=== PATIENT | male | born 1975 | race Caucasian/White ===

== ENCOUNTER → 2016-12-25 | Outpatient (CLI) | payer OTHER ==
[~2016-12-25] MED LIST: CEPHALEXIN500 M1 PO; DAYPRO600 M1 PO; FLEXERIL5 MG PO; MEDROL DOSEPAK4 MG PO; NAPROSYN500 MG PO; ROBAXIN750 MG PO; VICODIN 5/500 505 MG PO; XARE15TA PO; XARELTO20 M1 PO
[2016-12-25 19:54] LABS: BASO % 0.4 % (0.0-1.0); EOS # 0.1 10*3/uL (0.0-0.4); HEMATOCRIT 42.5 % (42.0-52.0); HEMOGLOBIN 14.5 g/dl (14.0-18.0); LYMPH % 25.1 % (27.0-41.0); MEAN CELL VOLUME 88.5 fl (80.0-94.0); MEAN CORPUSCULAR HGB 30.2 pg (27.0-31.0); MEAN CORPUSCULAR HGB CONC 34.1 g/dl (33.0-37.0); MEAN PLATELET VOLUME 11.2 fl (9.6-12.3); MONO # 0.7 10*3/uL (0.1-1.0); MONO % 9.1 % (3.0-9.0); NEUT # 5.2 10*3/uL (2.3-7.9); NEUT % 64.3 % (47.0-73.0); PLATELET COUNT AUTOMATED 217 10*3/uL (130-400); RED CELL DISTRI WIDTH 12.1 % (0-14.5); WHITE BLOOD COUNT 8.1 10*3/uL (4.8-10.8)
== END | disposition home or self-care (01) ==
LOC: LAB 18:50 → US 19:00
PROVIDERS: Family Medicine
DX: R60.0 Localized edema (principal); R53.83 Other fatigue; Z86.711 Personal history of pulmonary embolism

== ENCOUNTER → 2017-01-08 | Outpatient (CLI) | payer OTHER | END | disposition home or self-care (01) | LOC: US 10:30 | DX: K76.0 Fatty (change of) liver, not elsewhere classified (principal) ==

== ENCOUNTER 2018-01-15 16:04 | Emergency (ER) | payer OTHER ==
[~2018-01-15] VITALS: Ht 175.2 cm; Wt 97.5 kg
--- NOTE | ~2018-01-15 | EKG ---
[place], [place] ELECTROCARDIOGRAM REPORT NAME: TAMARA CROSS UNIT #: [id number] ROOM: DOCTOR: KANIKA RICH MD BIRTHDATE: [birth year] DOS: 01/15/2018 TIME: 1719 hours. Normal sinus rhythm at 55 beats per minute. The tracing is normal. No previous tracing is available for comparison. KANIKA RICH MD CM:EKGRPT:ELECTROCARDIOGRAM REPORT [id number] KANIKA RICH MD
[2018-01-15 17:16] LABS: BASO % 0.4 % (0.0-1.0); EOS # 0.1 10*3/uL (0.0-0.4); EOS % 1.4 % (1.0-4.0); HEMATOCRIT 43.4 % (42.0-52.0); HEMOGLOBIN 14.6 g/dl (14.0-18.0); LYMPH # 1.6 10*3/uL (1.3-4.4); LYMPH % 21.6 % (27.0-41.0); MEAN CELL VOLUME 89.5 fl (80.0-94.0); MEAN CORPUSCULAR HGB 30.1 pg (27.0-31.0); MEAN CORPUSCULAR HGB CONC 33.6 g/dl (33.0-37.0); MEAN PLATELET VOLUME 11.2 fl (9.6-12.3); MONO # 0.6 10*3/uL (0.1-1.0); MONO % 8.2 % (3.0-9.0); NEUT # 4.9 10*3/uL (2.3-7.9); NEUT % 68.1 % (47.0-73.0); PLATELET COUNT AUTOMATED 206 10*3/uL (130-400); RED BLOOD COUNT 4.85 10*6/uL (4.50-5.90); RED CELL DISTRI WIDTH 12.5 % (0-14.5); WHITE BLOOD COUNT 7.2 10*3/uL (4.8-10.8)
[2018-01-15 17:31] LABS: ALBUMIN 3.6 gm/dl (3.1-4.5); ALKALINE PHOSPHATASE 69 U/L (45-117); BUN 12 mg/dl (7-24); CHLORIDE 105 mmol/L (98-107); CREATININE 0.97 mg/dL (0.70-1.30); POTASSIUM 3.9 mmol/L (3.5-5.1); SGOT/AST 23 IU/L (3-35); SGPT/ALT 43 U/L (12-78); SODIUM 141 mmol/L (136-145); TOTAL PROTEIN 7.5 gm/dL (6.4-8.2)
[2018-01-15 17:34] LABS: TROPONIN I < 0.015 ng/ml (<0.045)
[2018-01-15 17:35] VITALS: BP 104/61
[2018-01-15] MEDS ORDERED: AMOXICILLIN500 M2 PO (18:49)
[2018-01-15] MEDS ORDERED: Meclizine25 MG PO (18:49)
== END 2018-01-15 19:54 | disposition home or self-care (01) ==
LOC: ED 16:04
PROVIDERS: Nurse Practitioner Family
DX: R53.83 Other fatigue (principal); Z79.899 Other long term (current) drug therapy; Z86.711 Personal history of pulmonary embolism

== ENCOUNTER → 2019-05-05 | Outpatient (CLI) | payer OTHER ==
[~2019-05-05] MED LIST changes: +AMOXICILLIN500 M2 PO; +Meclizine25 MG PO
== END | disposition home or self-care (01) ==
LOC: LAB 16:46
DX: K92.1 Melena (principal)

== ENCOUNTER → 2020-06-09 | Outpatient (CLI) | payer OTHER | END | disposition home or self-care (01) | LOC: US 11:00 | PROVIDERS: ATTEND Nurse Practitioner Primary Care | DX: M79.89 Other specified soft tissue disorders (principal) ==

== ENCOUNTER → 2023-06-19 | Outpatient (CLI) | payer OTHER | END | disposition home or self-care (01) | LOC: CT 00:51 → US 16:00 | PROVIDERS: ATTEND Internal Medicine | DX: R91.1 Solitary pulmonary nodule (principal); R07.89 Other chest pain; R60.9 Edema, unspecified; K76.0 Fatty (change of) liver, not elsewhere classified; Z86.711 Personal history of pulmonary embolism ==